=== PATIENT | male | born 1970 | race Caucasian/White ===

== ENCOUNTER → 2019-12-02 15:37 | Outpatient (CLI) | payer OTHER, SELFPAY ==
--- NOTE | ~2019-12-02 | US_ITS ---
EXAMINATION: US thyroid DATE: 12/02/2019 15:56 INDICATION: Enlarged thyroid TECHNIQUE: Multiple ultrasound images of the thyroid were obtained. COMPARISON: None. FINDINGS: The right thyroid lobe measures 6.6 x 3.1 x 1.8 cm. The left thyroid lobe measures 5.8 x 2.5 x 2.5 c m.. Thyroid isthmus measures 11 mm in thickness. 6 mm wider than tall spongiform nodule with partiall y smooth, partially ill-defined margins. (TI-RADS 1, benign, no FNA recommended) in the inferior left thyroid. There is normal echotexture, echogenicity and vascular flow throughout the thyroid gland. IMPRESSION: 1. Nonspecific thyromegaly with likely benign 6 mm TI RADS 1 left thyroid nodule which requires no bi opsy or further follow-up. Reviewed, dictated and finalized at location B. IMPRESSION: 1. Nonspecific thyromegaly with likely benign 6 mm TI RADS 1 left thyroid nodul e which requires no biopsy or further follow-up.
== END ==
PROVIDERS: PCP Family Medicine; Visit Provider Family Medicine
DX: E04.9 Nontoxic goiter, unspecified (principal)
CPT/HCPCS: 76536

== ENCOUNTER 2019-12-18 10:08 | Outpatient (NON) | payer OTHER, SELFPAY ==
[2019-12-19 13:10] LABS: SARS-CoV-2 RNA PCR Negative
== END 2019-12-18 10:09 ==
PROVIDERS: PCP Family Medicine; Visit Provider Family Medicine
DX: Z20.828 Contact with and (suspected) exposure to other viral communicable diseases (principal); R50.81 Fever presenting with conditions classified elsewhere
CPT/HCPCS: 87635; C9803; U0003

== ENCOUNTER 2020-04-24 15:23 | Outpatient (CLI) | payer OTHER, SELFPAY ==
--- NOTE | ~2020-04-24 | US_ITS ---
US scrotum doppler INDICATION: Epididymal cyst TECHNIQUE: Testicular sonogram utilizing grayscale and color Doppler FINDINGS: The testes are normal in size and appearance. No focal lesions are seen. The right testes measures 4.7 x 3.7 x 2.5 cm centimeters, and the left testis measures 4.3 x 3.2 x 3.2 cm. There is n ormal vascular flow to both testes. There is a small 3 mm right testicular cyst. There is a large complex left epididymal cyst measuring 4.7 x 4.9 x 2.9 cm. No significant hydrocele or varicocele. IMPRESSION: 1. Large complex left epididymal cyst measuring 4.9 x 4.7 x 2.9 cm. Reviewed, dictated and finalized at location A. [employer]
== END 2020-04-24 15:24 | disposition home or self-care (01) ==
PROVIDERS: PCP Family Medicine; Visit Provider Urology
DX: N50.3 Cyst of epididymis (principal)
CPT/HCPCS: 76870; 93976

== ENCOUNTER 2021-02-08 00:38 | Day surgery (SDC) | payer OTHER, SELFPAY ==
[2021-01-26 14:33] VITALS: BMI 26.8
--- NOTE | 2021-02-08 07:29 | P.CONGI_ITS ---
Assessment and Plan Assessment and plan (1) Encounter for screening colonoscopy: Code(s): Z12.11 - Encounter for screening for malignant neoplasm of colon Status: Acute Assessment and Plan: Patient presents for neoplasia screening colonoscopy. Appears to be at average risk for colon polyps. GI Consult Note Consult date/time: 02/08/21 07:29 HPI: Ron Sullivan is a 50 year old male Presents for screening colonoscopy. Patient's current weight appetite and bowel movements are normal. He denies abdominal pain. He has had no bleeding. Family history is noncontributory. Patient presents today for neoplasia screening. Review of Systems Review of Systems: All systems reviewed & are unremarkable except as noted in HPI and below PMFSH Social History Social History Smoking status: Never smoker Alcohol intake: current Drinks per week: 2 Substance use: current Substance use type: marijuana Other substance usage details: once a year Living arrangements: with family Spiritual care concerns: No Meds Home Medications and Allergies Home Medications Medication Instructions Recorded Confirmed Type No Home Medications 01/26/21 01/26/21 History Allergies Allergy/AdvReac Type Severity Reaction Status Date / Time No Known Allergies Allergy Unknown Verified 01/26/21 14:32 Exam Narrative: Physical exam reveals patient to be alert. Vital signs stable. HEENT exam is unremarkable. Patient is anicteric. Lungs are clear to a uscultation and percussion. Heart is without murmur or extra sounds. Abdominal exam bowel sounds are present soft nontender with no hepatosplenomegaly. Digital external rectal exam is normal.
[2021-02-08 07:38] VITALS: BP 130/74; PULSE 85; RESP 17; TEMP 36.1; O2SAT 99
[2021-02-08] MEDS: LACTATED RINGERS 1,000 ML 150 ML IV CONT (07:47)
--- NOTE | 2021-02-08 07:52 | WPDANESEPPF ---
Anes - Initial Pre Proc Eval Procedure: Operation Date: 02/08/21 08:30 Proposed Procedures p Screening Colonoscopy - Alvin Christianson MD Date/Time: 02/08/21 07:52 Surgeon: Alvin Christianson MD Pre Op Diagnosis: neoplasm screening Patient Data Age: 50 Gender: M Height: 1.93 m Weight: 100.4 kg Last Vital Signs Temp 36.1 C L 02/08/21 07:38 Pulse 85 02/08/21 07:38 Resp 17 02/08/21 07:38 BP 130/74 02/08/21 07:38 Pulse Ox 99 02/08/21 07:38 Allergies Allergy/AdvReac Type Severity Reaction Status Date / Time No Known Allergies Allergy Unknown Verified 02/08/21 07:37 Home Medications Medication Instructions Recorded Confirmed Type No Home Medications 01/26/21 02/08/21 History Patient hx anesthesia problems: none Family hx anesthesia problems: none Results Review: All pre-operative results and documents have been reviewed as part of the pre-operative evaluation. PMFSH Past Medical History Medical History (Updated 02/08/21 @ 07:54 by Umesh Cameron MD) Overweight Surgical History Surgical History (Updated 02/08/21 @ 07:54 by Umesh Cameron MD) History of appendectomy Social History Social History Smoking status: Never smoker Alcohol intake: current Drinks per week: 2 Substance use: current Substance use type: marijuana Other substance usage details: once a year Living arrangements: with family Spiritual care concerns: No Anes - Eval Final PreProcedure Day of Procedure 02/08/21 07:52 Patient weight: overweight Heart: regular rate and rhythm Lungs: clear to auscultation Airway: Mallampati scale class 1 Neurological: alert and oriented Last oral intake: >/= 8 hours ASA classification: II Emergent: no Anesthetic plan: proceed Anesthesia type and monitoring: general GIVS and standard monitoring Results Review: All pre-operative results and documents have been reviewed as part of the pre-operative evaluation. Informed Consent: The patient's anesthetic plan and its attendant risks and benefits were discussed with the patient/family/POA. Questions were solicited and answers provided to the satisfaction of the patient/family/POA.
[2021-02-08 08:56] VITALS: BP 124/59; PULSE 78; RESP 18; O2SAT 98
[2021-02-08 09:06] VITALS: BP 126/68; PULSE 68; RESP 18; O2SAT 98
[2021-02-08 09:16] VITALS: BP 122/75; PULSE 65; RESP 18; O2SAT 98
== END 2021-02-08 09:26 | disposition home or self-care (01) ==
PROVIDERS: PCP Family Medicine; Visit Provider Internal Medicine Gastroenterology
PROC: 0DJD8ZZ Inspection of Lower Intestinal Tract, Via Natural or Artificial Opening Endoscopic (ICD-10-PCS; CPT 45378; principal; 2021-02-08 08:30)
DX: Z12.11 Encounter for screening for malignant neoplasm of colon (principal); D12.3 Benign neoplasm of transverse colon; K63.5 Polyp of colon
CPT/HCPCS: 45385; 88305; J2704; J7120